=== PATIENT | male | born 2000 | race Caucasian/White ===

== ENCOUNTER 2024-12-31 19:41 | Emergency (ER) | payer OTHER ==
[~2024-12-31] VITALS: Ht 165.1 cm; Wt 88.9 kg
[2024-12-31 19:43] VITALS: TEMP 97.7
[2024-12-31] MEDS ORDERED: MECL-209 PO (22:53)
[2024-12-31] MEDS ORDERED: FLON1SPR NARES (22:53)
[2024-12-31 23:00] VITALS: BP 144/87
[2024-12-31] MEDS: MECLIZINE 25 MG TABLET PO ONE (23:04)
[2024-12-31 23:11] VITALS: O2SAT 97
== END 2024-12-31 23:28 | disposition home or self-care (01) ==
LOC: M ED 19:41
DX: H66.91 Otitis media, unspecified, right ear (principal); Z88.0 Allergy status to penicillin; Z88.1 Allergy status to other antibiotic agents